=== PATIENT | female | born 1960 | race Hispanic/Latino ===

== ENCOUNTER 2016-10-12 14:13 | Outpatient (CLI) | payer BC ==
--- NOTE | 2016-10-13 08:18 | Mammography Report ---
BILATERAL DIGITAL DIAGNOSTIC MAMMOGRAM with CAD and BILATERAL BREAST ULTRASOUND: 10/12/16 00:00:00 CLINICAL: Left subareolar palpable lump. COMPARISON:09/12/14 FINDINGS: There are bilateral scattered fibroglandular densities. An oval circumscribed low-density left subareolar mass or cyst is unchanged compared to the prior exam. It correlates with the palpable lump. Several right subcentimeter circumscribed densities on both views.No architectural distortion or suspicious calcifications. Ultrasound of the right breast (including all four quadrants and the retroareolar area) was performed. A benign cyst at 10 o'clock 3 cm is from the nipple measures 9 x 6 x 2 mm. A benign cyst at 1 o'clock 3.5 cm from the nipple measures 5 x 6 x 7 mm. A subareolar cyst at 12 o'clock measures 4 x 4 by 4 mm. No solid mass. Ultrasound of the left breast (including all four quadrants and the retroareolar area) was performed. 2 subareolar benign cysts correspond to what is perceived as a single palpable lump. They measure 1.1 x 0.5 x 1.1 cm and 0.7 x 0.5 x 0.8 cm. No solid mass. IMPRESSION: Bilateral benign cysts. BI-RADS CATEGORY: 2 -- Benign RECOMMENDATION: Routine mammographic screening in one year. COMMENT: Patient follow-up letters are generated by our [employer] application.
== END 2016-10-12 14:14 | disposition home or self-care (01) ==
LOC: SPVWC 14:13
PROVIDERS: ATTEND Obstetrics & Gynecology
DX: N60.01 Solitary cyst of right breast (principal); N60.02 Solitary cyst of left breast; N63 Unspecified lump in breast
CPT/HCPCS: 76641; G0204; 77066

== ENCOUNTER 2020-09-28 08:16 | Outpatient (CLI) | payer BC ==
--- NOTE | 2020-09-28 09:04 | Mammography Report ---
DIGITAL SCREENING MAMMOGRAM WITH CAD, 09/28/2020 CLINICAL INFORMATION / INDICATION: Routine screening mammography. TECHNIQUE: Digital bilateral 2D mammography was obtained in the craniocaudal and mediolateral obliqu e projections. This examination was interpreted with the benefit of Computer-Aided Detection analysis . COMPARISON: 10/01/2019, 09/20/2018 FINDINGS: Breast Density: There are scattered areas of fibroglandular density. No dominant mass, suspicious calcifications, or architectural distortion in either breast. IMPRESSION: No mammographic evidence of malignancy. Follow up recommendation: Routine yearly BI-RADS Category 1: Negative. A "normal" or negative report should not discourage follow up or biopsy of a clinically significant f inding. A written summary of these findings will be mailed to the patient. The patient will be entered into a mammography reporting system which will generate a reminder letter for the patient's next appointmen t at the appropriate interval. The [employer] recommends yearly mammograms starting at age 40 and continuing as l lakia as a woman is in good health. Breast MRI is recommended for women with an approximate 20-25% or greater lifetime risk of breast cancer, including women with a strong family history of breast or ova sandra cancer or who have been treated for Hodgkin's disease. Signer Name: Alfredo Nam MD Signed: 09/28/2020 9:00 AM Workstation Name: [id number]
== END 2020-09-28 08:17 | disposition home or self-care (01) ==
LOC: SPVWC 08:16
PROVIDERS: ATTEND Obstetrics & Gynecology
DX: Z12.31 Encounter for screening mammogram for malignant neoplasm of breast (principal)
CPT/HCPCS: 77067